=== PATIENT | female | born 1950 | race Caucasian/White ===

== ENCOUNTER 2022-03-17 18:04 | Emergency (ER) | payer MEDICARE ==
[~2022-03-17] VITALS: Ht 160 cm; Wt 64.4 kg
[2022-03-17 18:10] VITALS: BP 189/90
[2022-03-17 18:27] VITALS: BP 189/90
[2022-03-17] MEDS ORDERED: [UNRECOGNIZED DRUG - OTHER] IN (18:29)
== END 2022-03-17 18:35 | disposition home or self-care (01) ==
LOC: ED 18:04
DX: E11.649 Type 2 diabetes mellitus with hypoglycemia without coma (principal); I10 Essential (primary) hypertension; Z79.4 Long term (current) use of insulin